=== PATIENT | male | born 1975 | race Caucasian/White ===

== ENCOUNTER 2025-11-03 08:13 | Outpatient (AMB) | payer OTHER, SELFPAY ==
--- NOTE | 2025-11-03 08:13 | AM.OFFWIN_ITS ---
Intake Vital Signs 11/03/25 08:14 Height 5 ft 10 in Weight 243 lb BMI 34.9 BP 140/92 H Blood Pressure Location Lt brachial Position Sitting Pulse 100 Pulse Source Pulse Oximeter Pulse Oximetry (%) 97 Oxygen Delivery Method Room Air Intake Visit Reasons: EP-lt achilles tendon pain-WC Intake Note: Patient presents c/o left achilles pain related to stepping in a hole while working yesterday. Patient Tobacco Use Status: Current someday Tobacco user Allergies No Known Allergies Allergy (Verified 11/03/25 08:16) Do you need a note to return to daycare/school/sports/work: Yes HPI HPI Comments History of Present Illness Details History of Present Illness - The patient is a 50 year old male pres enting with left foot and ankle pain after an injury that occurred yesterday. - He reports that he works on a [employer] and he stepped off the truck into a pothole and felt a pop in his left ankle and heel. - He states that he was wearing boots at the time of the injury. - He noticed swelling to the back of the left ankle. - He has significant pain on palpation o f the affected area, which is exacerbated by walking and was also bothersome during sleep. - He has a history of prior ankle injuri es, but states the current injury is more severe. - He tried to wear other shoes to work t nellie and was unable to walk without pain. - He denies knee pain, hip pain, foot pa in, numbness or tingling. Physical Exam General: Cooperative, healthy appearing, comfortable, no acute distress and well developed Orientation: Patient oriented x3 Limitations: Limited movement due to ankle pain Respiratory: Normal respiratory effort and able to speak in complete sentences. Clear to auscultation bilaterally Cardiovascular: Regular rate and rhythm. Normal S1 and S2. Pulses are 2+ on the LE. Skin: No rashes or lesions noted. No bruising, redness, or swelling noted to the left ankle or leg. Neuro: Sensation is intact. Extremities: FROM of the left ankle. Swelling noted to the left Achilles. TTP of the left Achilles at the base at the calcaneous and above. No TTP of the medial or lateral malleolus. No TTP of the plantar fascia. Hagen's test on the left is negative. Strength is 4/5 on the LE. Ambulates with a steady gait. Normal pulses and capillary refill. Patient was informed and verbally consented to the use of an ambient scribe for clinic note documentation during this visit. [facility] Social History Patient Tobacco Use Status: Current someday Tobacco user Review of Systems Const All systems reviewed & are unremarkable except as noted in HPI and below Physical Exam Vital Signs: Last Vital Signs Pulse 100 11/03/25 08:14 BP 140/92 H 11/03/25 08:14 Pulse Ox 97 11/03/25 08:14 Oxygen Delivery Method Room Air 11/03/25 08:14 BMI result Body Mass Index 34.9 Results Reviewed Results Reviewed: will review the xray and u/s in the office Assessment & Plan Assessment & Plan (1) Strain of left Achilles tendon: Code(s): S86.012A - Strain of left Achilles tendon, initial encounter Qualifiers: Encounter type: initial encounter Qualified Code(s): S86.012A - Strain of left Achilles tendon, initial encounter Plan Most likely a strain vs tear vs ankle sprain vs fracture? plan - The patient sustained an acute injury to his left foot after stepping in a pothole, reporting an audible pop at the time of the event. - Physical exam demonstrates localized tenderness and swelling, but a negative Hagen test makes a complete Achilles tendon rupture less likely. - The primary concerns include a high ankle sprain, ligamentous tear, or a possible avulsion fracture - An X-ray of the left ankle is ordered to evaluate for a fracture. - An ultrasound of the Achilles tendon will alsp be ordered for further evaluation if warranted. - A walking boot may be provided for immobilization and support. - rest, ice and elevation - tylenol or motrin as needed - can refer to ortho if no better - will need f/u with his PCP Orders: Orders US Extremity Nonvas Limited LT Today S86.012A - Strain of left Achilles tendon, initial encounter XR ankle LT min 3V Today M79.605 - Pain in left leg Coding Level of Care Code Est Pt Level 4 (78879) Diagnoses Strain of left Achilles tendon, initial encounter S86.012A Encounter type: initial encounter
[2025-11-03 08:14] VITALS: BP 140/92; PULSE 100; O2SAT 97; BMI 34.9
== END 2025-11-03 11:38 | disposition home or self-care (01) ==
PROVIDERS: Visit Provider Physician Assistant Medical
DX: S86.012A Strain of left Achilles tendon, initial encounter (principal)

== ENCOUNTER 2025-11-03 08:30 | Outpatient (REF) | payer OTHER, BC, SELFPAY ==
--- NOTE | ~2025-11-03 | US_ITS ---
EXAMINATION: Ultrasound-guided Achilles tendon CLINICAL INFORMATION: [Left Achilles strain COMPARISON: None TECHNIQUE: Ultrasonic Achilles tendon FINDINGS: There is thickening of the distal Achilles tendon in the area of clinical concern. Tendon measures 0.95 cm AP. No abnormal vascularity is seen. Findings are consistent with tendinosis/strain. No measurable tear or retraction is seen. No free fluid seen. US/US Extremity Nonvas Limited LT IMPRESSION: Thickening of the distal Achilles tendon measuring 0.95 cm AP. Findings are consistent with tendinosis/strain. No measurable tear or retraction is seen. Electronically signed by: Kory Smith MD 11/03/2025 10:40 AM EST
--- NOTE | ~2025-11-03 | XR_ITS ---
EXAMINATION: XR ANKLE, LEFT CLINICAL INFORMATION: M79.605 - Pain in left leg COMPARISON: None available. TECHNIQUE: AP, lateral, and mortise views of the left ankle. FINDINGS: No fracture, dislocation, or suspicious bone lesion. There is normal alignment. The ankle mortise is intact. The talar dome is normal. The subtalar joints and calcaneus appear normal. There is mild spurring of the anterior process of the talus. No ankle joint effusion. Soft tissues demonstrate minimal thickening of the mid Achilles tendon. Cannot exclude underlying Achilles tendon pathology. Soft tissues otherwise normal. XR/XR ankle LT min 3V IMPRESSION: 1. No acute bony abnormalities. 2. Mild thickening of the mid Achilles tendon, for which underlying Achilles tendon pathology is a consideration. Electronically signed by: Dirk To MD 11/03/2025 09:19 AM DANIEL
== END 2025-11-03 08:31 | disposition home or self-care (01) ==
LOC: HO.HMGCX 08:30
PROVIDERS: Visit Provider Physician Assistant Medical
DX: S86.012A Strain of left Achilles tendon, initial encounter (principal); W18.42XA Slipping, tripping and stumbling without falling due to stepping into hole or opening, initial encounter
CPT/HCPCS: 73610; 76882

== ENCOUNTER → 2025-11-03 08:47 | Outpatient (BNV) | payer OTHER, SELFPAY | PROVIDERS: Visit Provider Radiology Diagnostic Radiology | DX: S86.012A Strain of left Achilles tendon, initial encounter (principal); M76.62 Achilles tendinitis, left leg | CPT/HCPCS: 73610; 76882 ==

== ENCOUNTER 2025-11-07 08:49 | Outpatient (AMB) | payer OTHER, SELFPAY ==
[2025-11-07 08:52] VITALS: BP 150/94; PULSE 113; TEMP 36.8; O2SAT 97; BMI 34.9
--- NOTE | 2025-11-07 08:52 | MHC.OFFWIV ---
Intake Vital Signs 11/07/25 08:52 Height 5 ft 10 in Weight 243 lb BMI 34.9 BP 150/94 H Blood Pressure Location Lt brachial Position Sitting Pulse 113 H Pulse Source Pulse Oximeter Temp 98.3 F Temp Source Oral Pulse Oximetry (%) 97 Oxygen Delivery Method Room Air Intake Visit Reasons: EP-lt Achilles painWC Intake Note: Patient presents with non resolved Achilles pain and is need for another work load Patient Tobacco Use Status: Current someday Tobacco user Allergies No Known Allergies Allergy (Verified 11/07/25 08:55) Do you need a note to return to daycare/school/sports/work: Yes HPI HPI Comments History of Present Illness Details 50-year-old male presents to the walk-in clinic for follow-up of a left ankle injury. Patient reports injury occurred on 11/02 when he stepped off a box truck into a pothole at work and felt a sudden ?pop? in his left ankle/heel. He was evaluated at this clinic on 11/02, and imaging at that time showed thickening of the distal Achilles tendon measuring 0.95 cm AP, consistent with Achilles tendinosis/strain. He was placed in an orthopedic walking boot for support. 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 He states he is unable to safely drive at this time. He is requesting additional time off work. Patient also reports persistent pain despite use of acetaminophen and ibuprofen and is asking for stronger pain medication. Denies new injury, numbness, tingling, redness, calf pain, or swelling. PFSH Social History Patient Tobacco Use Status: Current someday Tobacco user Review of Systems Const All systems reviewed & are unremarkable except as noted in HPI and below Physical Exam Vital Signs: Last Vital Signs Temp 98.3 F 11/07/25 08:52 Pulse 113 H 11/07/25 08:52 BP 150/94 H 11/07/25 08:52 Pulse Ox 97 11/07/25 08:52 Oxygen Delivery Method Room Air 11/07/25 08:52 BMI result Body Mass Index 34.9 Const General: no acute distress Nutritional Appearance: obese Orientation/consciousness: patient oriented x3 Neuro General: patient oriented x3 and moves all extremities Extrem Other: LEFT ANKLE: Orthopedic boot in place. Mild swelling over posterior ankle/Achilles region Tenderness to palpation along distal Achilles tendon No visible deformity or ecchymosis Pain with plantarflexion and dorsiflexion Negative Hagen test No erythema or warmth Psych Speech and movement: Normal speech and movement present Assessment & Plan Assessment & Plan (1) Strain of left Achilles tendon: Code(s): S86.012A - Strain of left Achilles tendon, initial encounter Plan: Left Achilles tendinosis/strain, work-related. Persistent pain and functional limitation impacting ability to perform job duties. Continue orthopedic walking boot for immobilization and support. Recommend continued work restriction ? patient unable to safely drive or perform duties requiring prolonged standing, walking, or climbing. Work note provided extending time off work. Pain management: Continue acetaminophen and NSAIDs as tolerated. Discussed risks and limited role of stronger pain medications; opioids not indicated at this time. Advise rest, ice, elevation, and avoidance of activities that worsen pain. Strongly Advised Pt to f/u with his PCP for Ortho referral and possibly FMLA. Coding Level of Care Code Est Pt Level 4 (95486) Diagnoses Strain of left Achilles tendon S86.012A Time Spent (min) 20
== END 2025-11-07 10:04 | disposition home or self-care (01) ==
PROVIDERS: Visit Provider Nurse Practitioner Family
DX: S86.012A Strain of left Achilles tendon, initial encounter (principal)

== ENCOUNTER → 2025-11-07 08:49 | Outpatient (BNVA) | payer OTHER, SELFPAY | PROVIDERS: Visit Provider Nurse Practitioner Family | DX: S86.012D Strain of left Achilles tendon, subsequent encounter (principal); M25.572 Pain in left ankle and joints of left foot | CPT/HCPCS: 99212 ==